=== PATIENT | male | born 1970 | race Caucasian/White ===

== ENCOUNTER 2019-03-03 13:46 | Emergency (ER) | payer BC ==
[~2019-03-03] VITALS: Ht 175.2 cm; Wt 90.7 kg
== END 2019-03-03 15:22 | disposition home or self-care (01) ==
LOC: ED 13:46
DX: S93.402A Sprain of unspecified ligament of left ankle, initial encounter (principal); F17.200 Nicotine dependence, unspecified, uncomplicated; Z88.0 Allergy status to penicillin; X50.1XXA Overexertion from prolonged static or awkward postures, initial encounter; Y93.89 Activity, other specified; Y92.89 Other specified places as the place of occurrence of the external cause; Y99.8 Other external cause status

== ENCOUNTER 2020-04-02 13:25 | Emergency (ER) | payer BC ==
[2020-04-02] MEDS ORDERED: NAPROSYN500 MG PO ×2 (13:39→13:42)
[2020-04-02] MEDS ORDERED: CLINDAMYCIN HC300 MG PO ×2 (13:39→13:42)
== END 2020-04-02 13:34 | disposition home or self-care (01) ==
LOC: ED 13:25
DX: K08.89 Other specified disorders of teeth and supporting structures (principal); Z88.0 Allergy status to penicillin

== ENCOUNTER → 2020-08-07 | Outpatient (CLI) | payer BC ==
[~2020-08-07] MED LIST: CLINDAMYCIN HC300 MG PO; CYCLOBENZAPRINE10 MG PO; NAPROSYN500 MG PO; TYLENOL325 M1 PO
== END | disposition home or self-care (01) ==
LOC: COVID19 12:52
PROVIDERS: ATTEND Internal Medicine
DX: Z20.822 Contact with and (suspected) exposure to COVID-19 (principal)

== ENCOUNTER 2020-08-11 09:49 | Emergency (ER) | payer BC ==
[~2020-08-11] VITALS: Ht 175.2 cm; Wt 90.7 kg
[~2020-08-11 09:49] MED LIST changes: -CYCLOBENZAPRINE10 MG PO; -TYLENOL325 M1 PO
[2020-08-11] MEDS ORDERED: TYLENOL325 M1 PO (11:20)
[2020-08-11] MEDS ORDERED: NAPROSYN500 MG PO (11:20)
[2020-08-11] MEDS ORDERED: CYCLOBENZAPRINE10 MG PO (11:20)
== END 2020-08-11 11:58 | disposition home or self-care (01) ==
LOC: ED 09:49
DX: M54.5 Low back pain (principal); Z88.0 Allergy status to penicillin; Z79.899 Other long term (current) drug therapy; Z98.890 Other specified postprocedural states

== ENCOUNTER 2020-12-21 19:05 | Emergency (ER) | payer BC ==
[~2020-12-21] VITALS: Ht 175.2 cm; Wt 95.3 kg
[~2020-12-21 19:05] MED LIST changes: +CYCLOBENZAPRINE10 MG PO; +TYLENOL325 M1 PO
[2020-12-21] MEDS ORDERED: KENALOG 0.025%15 GM T (19:49)
== END 2020-12-21 20:20 | disposition home or self-care (01) ==
LOC: ED 19:05
DX: L25.9 Unspecified contact dermatitis, unspecified cause (principal); Z88.0 Allergy status to penicillin

== ENCOUNTER 2021-03-18 20:05 | Emergency (ER) | payer BC ==
[~2021-03-18] VITALS: Ht 176.5 cm; Wt 95.3 kg
[~2021-03-18 20:05] MED LIST changes: +KENALOG 0.025%15 GM T
[2021-03-18] MEDS ORDERED: VIBRAMYCIN100 MG PO (20:34)
== END 2021-03-18 20:50 | disposition home or self-care (01) ==
LOC: ED 20:05
DX: L02.214 Cutaneous abscess of groin (principal)

== ENCOUNTER 2021-03-29 09:56 | Emergency (ER) | payer BC ==
[~2021-03-29] VITALS: Ht 175.3 cm; Wt 90.7 kg
[~2021-03-29 09:56] MED LIST changes: +VIBRAMYCIN100 MG PO
== END 2021-03-29 10:21 | disposition home or self-care (01) ==
LOC: ED 09:56
DX: S30.863A Insect bite (nonvenomous) of scrotum and testes, initial encounter (principal); W57.XXXA Bitten or stung by nonvenomous insect and other nonvenomous arthropods, initial encounter; Y93.89 Activity, other specified; Y92.89 Other specified places as the place of occurrence of the external cause; Y99.8 Other external cause status

== ENCOUNTER 2021-08-12 18:11 | Emergency (ER) | payer BC ==
[2021-08-12] MEDS ORDERED: CLEOCIN HCL300 MG PO (19:06)
[2021-08-12] MEDS ORDERED: Motrin,Rufen800 MG PO (19:07)
[2021-08-13] MEDS ORDERED: Motrin,Rufen800 MG PO (12:37)
[2021-08-13] MEDS ORDERED: CLINDAMYCIN HC300 MG PO (12:37)
== END 2021-08-12 19:12 | disposition home or self-care (01) ==
LOC: ED 18:11
DX: S02.5XXB Fracture of tooth (traumatic), initial encounter for open fracture (principal); K04.7 Periapical abscess without sinus; F17.200 Nicotine dependence, unspecified, uncomplicated; Z88.0 Allergy status to penicillin; Z90.89 Acquired absence of other organs; X58.XXXA Exposure to other specified factors, initial encounter; Y93.89 Activity, other specified; Y92.89 Other specified places as the place of occurrence of the external cause; Y99.8 Other external cause status

== ENCOUNTER → 2021-12-08 | Outpatient (CLI) | payer BC ==
[~2021-12-08] MED LIST changes: +CLEOCIN HCL300 MG PO; +Motrin,Rufen800 MG PO
== END | disposition home or self-care (01) ==
LOC: COVID19 01:00
PROVIDERS: ATTEND Internal Medicine
DX: Z20.822 Contact with and (suspected) exposure to COVID-19 (principal)

== ENCOUNTER 2022-03-26 23:30 | Emergency (ER) | payer BC ==
[~2022-03-26] VITALS: Ht 170.1 cm; Wt 81.6 kg
== END 2022-03-27 00:45 | disposition home or self-care (01) ==
LOC: ED 23:30
DX: S01.81XA Laceration without foreign body of other part of head, initial encounter (principal); Z90.89 Acquired absence of other organs; Z88.0 Allergy status to penicillin; W22.8XXA Striking against or struck by other objects, initial encounter; Y93.89 Activity, other specified; Y92.89 Other specified places as the place of occurrence of the external cause; Y99.8 Other external cause status

== ENCOUNTER 2022-08-19 12:00 | Emergency (ER) | payer BC ==
[~2022-08-19] VITALS: Ht 177.8 cm; Wt 88.5 kg
[2022-08-19] MEDS ORDERED: VIBRAMYCIN100 MG PO (12:45)
== END 2022-08-19 12:51 | disposition home or self-care (01) ==
LOC: ED 12:00
DX: S30.863A Insect bite (nonvenomous) of scrotum and testes, initial encounter (principal); Z90.89 Acquired absence of other organs; Z88.0 Allergy status to penicillin; W57.XXXA Bitten or stung by nonvenomous insect and other nonvenomous arthropods, initial encounter; Y93.89 Activity, other specified; Y92.89 Other specified places as the place of occurrence of the external cause; Y99.8 Other external cause status

== ENCOUNTER 2022-10-08 11:49 | Inpatient (IN) | payer BC ==
[~2022-10-08] VITALS: Ht 175.2 cm; Wt 90.1 kg
[2022-10-08 12:08] VITALS: BP 143/100
[2022-10-08 12:45] LABS: BASO # 0.1 10*3/uL (0.0-0.1); BASO % 0.9 % (0.0-1.0); EOS # 0.1 10*3/uL (0.0-0.4); EOS % 1.5 % (1.0-4.0); HEMATOCRIT 43.4 % (42.0-52.0); LYMPH # 2.4 10*3/uL (1.3-4.4); MEAN CELL VOLUME 98.2 fl (80.0-94.0); MEAN CORPUSCULAR HGB 34.4 pg (27.0-31.0); MEAN PLATELET VOLUME 9.5 fl (9.6-12.3); MONO # 0.7 10*3/uL (0.1-1.0); MONO % 7.1 % (3.0-9.0); NEUT # 6.1 10*3/uL (2.3-7.9); NEUT % 63.9 % (47.0-73.0); PLATELET COUNT AUTOMATED 249 10*3/uL (130-400); RED BLOOD COUNT 4.42 10*6/uL (4.50-5.90); RED CELL DISTRI WIDTH 12.3 % (0-14.5); WHITE BLOOD COUNT 9.6 10*3/uL (4.8-10.8)
[2022-10-08 13:17] LABS: ALKALINE PHOSPHATASE 110 U/L (46-116); BUN 7 mg/dl (9-23); CHLORIDE 111 mmol/L (98-107); ETHYL ALCOHOL 35.3 mg/dl (<3); POTASSIUM 3.4 mmol/L (3.4-5.1); SGPT/ALT 39 U/L (10-49); TOTAL PROTEIN 6.5 gm/dL (6.0-8.0)
[2022-10-08 17:46] VITALS: BP 136/85
[2022-10-08] MEDS ORDERED: BUPROPION HYDR150 M3 PO (17:47)
[2022-10-08 19:33] VITALS: BP 146/95
[2022-10-08 22:00] VITALS: BP 148/88
[2022-10-09 06:23] LABS: BASO # 0.1 10*3/uL (0.0-0.1); BASO % 0.6 % (0.0-1.0); EOS # 0.2 10*3/uL (0.0-0.4); EOS % 2.2 % (1.0-4.0); HEMATOCRIT 39.4 % (42.0-52.0); LYMPH # 2.7 10*3/uL (1.3-4.4); LYMPH % 29.3 % (27.0-41.0); MEAN CELL VOLUME 95.9 fl (80.0-94.0); MEAN CORPUSCULAR HGB 34.5 pg (27.0-31.0); MEAN PLATELET VOLUME 9.6 fl (9.6-12.3); MONO # 0.6 10*3/uL (0.1-1.0); MONO % 6.6 % (3.0-9.0); NEUT # 5.5 10*3/uL (2.3-7.9); NEUT % 60.3 % (47.0-73.0); PLATELET COUNT AUTOMATED 201 10*3/uL (130-400); RED BLOOD COUNT 4.11 10*6/uL (4.50-5.90); RED CELL DISTRI WIDTH 12.2 % (0-14.5); WHITE BLOOD COUNT 9.1 10*3/uL (4.8-10.8)
[2022-10-09 06:44] LABS: ALKALINE PHOSPHATASE 114 U/L (46-116); BUN 8 mg/dl (9-23); CHLORIDE 109 mmol/L (98-107); POTASSIUM 3.4 mmol/L (3.4-5.1); SGPT/ALT 53 U/L (10-49); TOTAL PROTEIN 5.6 gm/dL (6.0-8.0)
[2022-10-09 08:00] VITALS: BP 117/67
[2022-10-09 12:00] VITALS: BP 149/88
[2022-10-09 16:00] VITALS: BP 153/88
[2022-10-09 20:00] VITALS: BP 139/89
[2022-10-10] VITALS: BP 124/64
[2022-10-10 05:28] LABS: ALKALINE PHOSPHATASE 120 U/L (46-116); BUN 9 mg/dl (9-23); CHLORIDE 109 mmol/L (98-107); POTASSIUM 3.6 mmol/L (3.4-5.1); SGPT/ALT 45 U/L (10-49); TOTAL PROTEIN 5.7 gm/dL (6.0-8.0)
[2022-10-10 06:24] LABS: BASO # 0.1 10*3/uL (0.0-0.1); BASO % 0.6 % (0.0-1.0); EOS # 0.3 10*3/uL (0.0-0.4); EOS % 2.8 % (1.0-4.0); HEMATOCRIT 39.7 % (42.0-52.0); LYMPH # 2.7 10*3/uL (1.3-4.4); LYMPH % 28.3 % (27.0-41.0); MEAN CELL VOLUME 96.1 fl (80.0-94.0); MEAN CORPUSCULAR HGB 34.1 pg (27.0-31.0); MEAN CORPUSCULAR HGB CONC 35.5 g/dl (33.0-37.0); MEAN PLATELET VOLUME 10.1 fl (9.6-12.3); MONO # 0.7 10*3/uL (0.1-1.0); NEUT # 5.6 10*3/uL (2.3-7.9); NEUT % 59.7 % (47.0-73.0); PLATELET COUNT AUTOMATED 212 10*3/uL (130-400); RED BLOOD COUNT 4.13 10*6/uL (4.50-5.90); RED CELL DISTRI WIDTH 12.2 % (0-14.5); WHITE BLOOD COUNT 9.4 10*3/uL (4.8-10.8)
[2022-10-10 07:56] VITALS: BP 128/78
[2022-10-10 08:00] VITALS: BP 128/78
== END 2022-10-10 11:15 | disposition home or self-care (01) | DRG 897 ==
LOC: ED 11:49 → EDHOLD 12:27 → 4E 12:27 → EDHOLD 12:47 → 4E 21:00
PROVIDERS: Family Medicine; Student in an Organized Health Care Education/Training Program; ADMIT Emergency Medicine; ATTEND Emergency Medicine
DX: F10.930 Alcohol use, unspecified with withdrawal, uncomplicated (principal); R73.9 Hyperglycemia, unspecified; Z72.0 Tobacco use; Z88.0 Allergy status to penicillin

== ENCOUNTER 2023-02-16 12:37 | Emergency (ER) | payer BC ==
[~2023-02-16] VITALS: Ht 175.2 cm; Wt 90.7 kg
[~2023-02-16 12:37] MED LIST changes: +BUPROPION HYDR150 M3 PO
[2023-02-16] MEDS ORDERED: PREDNISONE10 M1 PO (13:26)
== END 2023-02-16 14:43 | disposition home or self-care (01) ==
LOC: ED 12:37
DX: M25.512 Pain in left shoulder (principal); G89.29 Other chronic pain; Z88.0 Allergy status to penicillin; Z98.890 Other specified postprocedural states; F17.200 Nicotine dependence, unspecified, uncomplicated

== ENCOUNTER 2023-04-11 10:54 | Emergency (ER) | payer BC ==
[~2023-04-11] VITALS: Ht 175.2 cm; Wt 90.7 kg
[~2023-04-11 10:54] MED LIST changes: +PREDNISONE10 M1 PO
[2023-04-11] MEDS ORDERED: TRAZODONE100 MG PO (11:02)
== END 2023-04-11 11:20 | disposition left against medical advice (07) ==
LOC: ED 10:54
DX: M12.512 Traumatic arthropathy, left shoulder (principal); F17.200 Nicotine dependence, unspecified, uncomplicated; Z88.0 Allergy status to penicillin; Z79.899 Other long term (current) drug therapy

== ENCOUNTER 2024-07-17 17:12 | Emergency (ER) | payer BC ==
[~2024-07-17] VITALS: Wt 88.5 kg
[~2024-07-17 17:12] MED LIST changes: +TRAZODONE100 MG PO
[2024-07-17] MEDS ORDERED: Ondansetron Hydrochloride 4 MG TAB PO ONE (17:30)
[2024-07-17] MEDS ORDERED: ACETAMINOPHEN 325 MG TAB PO ONE (17:30)
[2024-07-17] MEDS ORDERED: MUCINEX1200 M1 PO (18:14)
== END 2024-07-17 18:57 | disposition home or self-care (01) ==
LOC: ED 17:12
DX: J06.9 Acute upper respiratory infection, unspecified (principal); B97.89 Other viral agents as the cause of diseases classified elsewhere; Z20.822 Contact with and (suspected) exposure to COVID-19; Z79.899 Other long term (current) drug therapy; Z88.0 Allergy status to penicillin

== ENCOUNTER 2024-12-05 16:30 | Emergency (ER) | payer BC ==
[~2024-12-05] VITALS: Wt 90.7 kg
[~2024-12-05 16:30] MED LIST changes: +MUCINEX1200 M1 PO
[2024-12-05] MEDS ORDERED: Tetracaine Hydrochloride 0.5% 4 ML BOT OPH ONE (17:00)
[2024-12-05] MEDS ORDERED: LISSAMINE GREEN 1.5 MG STRIP OP ONE (17:05)
[2024-12-05] MEDS ORDERED: OFLOXACIN 0.3% 5 ML BOTTLE OPH ONE (17:15)
== END 2024-12-05 17:21 | disposition home or self-care (01) ==
LOC: ED 16:30
DX: S05.01XA Injury of conjunctiva and corneal abrasion without foreign body, right eye, initial encounter (principal); F41.9 Anxiety disorder, unspecified; F17.200 Nicotine dependence, unspecified, uncomplicated; Z88.0 Allergy status to penicillin; W22.8XXA Striking against or struck by other objects, initial encounter; Y93.89 Activity, other specified; Y92.89 Other specified places as the place of occurrence of the external cause; Y99.8 Other external cause status

== ENCOUNTER → 2024-12-13 | Outpatient (CLI) | payer BC | END | disposition home or self-care (01) | LOC: LAB 15:19 | PROVIDERS: ATTEND Internal Medicine | DX: R25.3 Fasciculation (principal) ==